=== PATIENT | female | born 1955 ===

== ENCOUNTER 2017-01-07 09:25 | Day surgery (SDC) | payer BC ==
[~2017-01-07] VITALS: Ht 149.9 cm; Wt 57.6 kg
[2017-01-07] VITALS (7 sets, daily range): BP systolic 101–117; BP diastolic 69–78
[2017-01-07] MEDS ORDERED: ASPIRIN81 MG ORAL (09:56)
[2017-01-07] MEDS ORDERED: SYNTHROID88 MCG ORAL (09:56)
[2017-01-07] MEDS ORDERED: spironolactone PO (09:56)
[2017-01-07] MEDS ORDERED: CALCIUM + VITA1 EAC1 PO (09:56)
[2017-01-07] MEDS ORDERED: SIMVASTATIN40 MG ORAL (09:56)
[2017-01-07] MEDS ORDERED: Lidocaine 1% MPF 10mg/ml 5ml ONE (10:00)
[2017-01-07] MEDS ORDERED: Propofol 10mg/ml 20ml IV ONE (10:00)
--- NOTE | 2017-01-07 10:04 | Anethesia Preoperative Eval ---
Anesthesia Pre-op PMH/ROS General Date of Evaluation: Jan 07, 2017 Time of Evaluation: 10:02 Anesthesiologist: melissa Mallampati Score Class I : Soft palate, uvula, fauces, pillars visible Class II: Soft palate, uvula, fauces visible Class III: Soft palate, base of uvula visible Class IV: Only hard plate visible Surgeon: rose marie Diagnosis: rectal bleed Surgical Procedure: egd/colonoscopy Anesthesia History: none Family History: no anesthesia problems Allergies: Coded Allergies: No Known Allergies (Unverified , 01/06/17) Medications: see eMAR Past Medical History Endocrine: Reports: hypothyroidism Anesthesia Pre-op Phys. Exam Physician Exam Last Vital Signs Date Time Temp Pulse Resp B/P Pulse Ox O2 Delivery O2 Flow Rate FiO2 01/07/17 09:48 97.3 72 18 101/70 97 Room Air Constitutional: NAD Neurologic: CN 2-12 intact Cardiovascular: RRR Respiratory: CTA Gastrointestinal: S/NT/ND Airway Exam Mallampati Score: Class II MO: full Neck: supple TMD: 2fb ROM: full Teeth: intact Anesthesia Pre-op A/P Studies Pre-op Studies: EKG - nsr Risk Assessment & Plan Assessment: rectal bleed Plan: egd/colonoscopy Status Change Before Surgery: No Pre-Antibiotics Drug: PAYAL Powers Jan 07, 2017 10:04
--- NOTE | 2017-01-07 10:04 | Pre-Procedure Note/Attestation ---
Pre-Procedure Note/Attestation Complete Prior to Procedure Planned Procedure: not applicable Procedure Narrative: esophagogastroduodenoscopy and colonoscopy Indications for Procedure Pre-Operative Diagnosis: screening colon, GERD Attestation I attest that I discussed the nature of the procedure; its benefits; risks and complications; and alternatives (and the risks and benefits of such alternatives ), prior to the procedure, with the patient (or the patient's legal personal financial representative). I attest that, if there was a reasonable possibility of needing a blood transfusion, the patient (or the patient's legal personal financial representative) was given the [facility] standardized written summary, pursuant to the [place] Blood Safety Act ([place] Health and Safety Code # 1645, as amended). I attest that I re-evaluated the patient just prior to the surgery and that there has been no change in the patient's H&P, except as documented below: CHRISTOPHER CONTRERAS Jan 07, 2017 10:04
--- NOTE | 2017-01-07 10:05 | Short Stay Surgery H&P ---
History of Present Illness History of Present Illness Chief Complaint screening colon, GERD HPI Bria Fisher is a 61 year old female who was admitted on for Rectal Bleed Patient History Allergies: Coded Allergies: No Known Allergies (Unverified , 01/06/17) PAST MEDICAL HISTORY: (1) HTN (hypertension) (2) Hypothyroid (3) Hypercholesteremia Past Surgeries: Social History: Medication History Scheduled Aspirin* (Aspirin*), 81 MG ORAL DAILY, (Reported) Calcium Carbonate/Vitamin D3 (Calcium + Vitamin D Tablet), 1 EACH PO DAILY, ( Reported) Levothyroxine Sodium* (Synthroid*), 88 MCG ORAL DAILY, (Reported) Simvastatin (Zocor), 40 MG ORAL BEDTIME, (Reported) [spironolactone], 100 MG PO DAILY, (Reported) Review of Systems Cardiovascular: Reports: no symptoms Respiratory: Reports: no symptoms Skeletal: Reports: no symptoms Gastrointestinal: Reports: no symptoms Genitourinary: Reports: no symptoms Neurologic: Reports: no symptoms Endocrine: Reports: no symptoms Hematologic: Reports: no symptoms Physical Exam Vital Signs Last Vital Signs Date Time Temp Pulse Resp B/P Pulse Ox O2 Delivery O2 Flow Rate FiO2 01/07/17 09:48 97.3 72 18 101/70 97 Room Air Skin: normal HENT: normal Heart: normal Lungs: normal Abdomen: normal Extremities: normal Plan Plan of Care esophagogastroduodenoscopy colon Final Diagnosis: Attestation Are the patient's medical conditions optimized for surgery? Attestation Response: yes CHRISTOPHER CONTRERAS Jan 07, 2017 10:05
--- NOTE | 2017-01-07 10:39 | Endoscopy Procedure Note ---
Endoscopy Procedure Note Indication for Procedure: screening colon, gerd Procedures Performed: EGD, colonoscopy Operative Findings/Diagnosis: 2 polyps, hemorrhoids Specimen: yes Pt Tolerated Procedure Well: Yes Estimated Blood Loss: none Anesthesiologist: janey Anesthesia: MAC Implant(s) used?: No 50 yrs or older w/o bx or poly: No 10yrs. F/U not recommended: Yes 10 yrs. F/U needed: Yes 18 years or older w/prev. colo: No CHRISTOPHER CONTRERAS Jan 07, 2017 10:39
--- NOTE | 2017-01-07 21:40 | Procedure Note ---
DATE OF PROCEDURE: 01/07/2017 PROCEDURE: Upper endoscopy with biopsy and colonoscopy with snare polypectomy. SURGEON: Joao Marte M.D. ANESTHESIOLOGIST: Cornelia Frazier M.D. INSTRUMENT: Olympus adult flexible upper endoscope and colonoscope. INDICATION: Screening colonoscopy evaluation, history of acid reflux disease, and GERD. REASON FOR PROCEDURE: The procedure, risks, benefits, and possible consequences, including hemorrhage, aspiration, perforation and infection, and alternative treatments, were explained to the patient/legal guardian by Dr. Joao Marte and the patient/legal guardian understood and accepted these risks. PROCEDURE: After informed consent was obtained and the patient was adequately sedated, Olympus upper endoscope was advanced from the mouth into the second portion of duodenum and retroflexion was performed in the stomach. The patient has diffuse gastritis suspicious for H. pylori infection. Random biopsy from antrum and body was obtained to rule out H. pylori infection. Then, at this time, the upper endoscope was retrieved and the patient was turned over for colonoscopy. First, rectal exam was performed, which was positive for internal hemorrhoids. Then, the scope was advanced from rectum into the cecum documented by appendiceal orifice, ileocecal valve, right upper quadrant on palpation. Quality of prep was very good. The patient had two sessile polyps in the ascending colon, one measured 6 to 7 mm. Next one was 5 to 6 mm. Both removed with cold snare polypectomy technique. The rest of the colonic mucosa was grossly within normal limits. Retroflexion of rectum showed evidence of medium-sized internal hemorrhoids. SUMMARY FINDINGS: 1. Gastritis, suspicious for Helicobacter pylori infection, status post biopsy. 2. Two colonic polyps removed, see above for details. 3. Internal hemorrhoids. RECOMMENDATIONS: 1. Follow up biopsies and treat accordingly. 2. Recommend repeat colonoscopy in five years. Joao Marte M.D. DR: ARVIND JOB#: [id number] CC:
--- NOTE | 2017-01-09 08:13 | Immediate Post-Op Evaluation ---
Immediate Post-Op Evalulation Immediate Post-Op Evalulation Procedure: egd/colonoscopy Date of Evaluation: Jan 07, 2017 Time of Evaluation: 11:00 IV Fluids: 0.9ns 200ml Blood Products: none Estimated Blood Loss: negligible Blood Pressure Systolic: 110 Blood Pressure Diastolic: 73 Pulse Rate: 73 Respiratory Rate: 18 O2 Sat by Pulse Oximetry: 100 Temperature (Fahrenheit): 97.0 Pain Score (1-10): 0 Nausea: No Vomiting: No Complications none Patient Status: awake, reacts, patent Hydration Status: adequate Drug: PAYAL Powers Jan 09, 2017 08:13
[2017-01-09 08:16] VITALS: BP 177/77
--- NOTE | 2017-01-09 08:16 | 48 Hour Post Anesthesia Eval ---
Post Anesthesia Evaluation Procedure: egd/colonoscopy Date of Evaluation: Jan 07, 2017 Time of Evaluation: 11:15 Blood Pressure Systolic: 177 0: 77 Pulse Rate: 75 Respiratory Rate: 18 Temperature (Fahrenheit): 97.0 O2 Sat by Pulse Oximetry: 100 Airway: patent Nausea: No Vomiting: No Pain Intensity: 0 Hydration Status: adequate Cardiopulmonary Status: stable Mental Status/LOC: patient returned to baseline Post-Anesthesia Complications: none Follow-up care needed: N/A PAYAL MCCRARY Jan 09, 2017 08:16
--- NOTE | 2017-01-13 17:41 | Cardiology Report ---
APPROVED REPORT EKG Measurement Heart [id number] Normal sinus rhythm Low voltage QRS Borderline ECG
== END 2017-01-07 12:05 | disposition home or self-care (01) ==
LOC: GAS 09:25
DX: Z12.11 Encounter for screening for malignant neoplasm of colon (principal); D12.2 Benign neoplasm of ascending colon; K64.8 Other hemorrhoids; K21.9 Gastro-esophageal reflux disease without esophagitis; K29.50 Unspecified chronic gastritis without bleeding; B96.81 Helicobacter pylori [H. pylori] as the cause of diseases classified elsewhere; I10 Essential (primary) hypertension; E03.9 Hypothyroidism, unspecified; E78.00 Pure hypercholesterolemia, unspecified; Z79.82 Long term (current) use of aspirin
CPT/HCPCS: 43239; 45385; 93005; J2704; 94003; 94150